=== PATIENT | female | born 1945 | race Caucasian/White ===

== ENCOUNTER 2019-08-08 17:04 | Emergency (ER) | payer OTHER, MEDICARE ==
[~2019-08-08] VITALS: Ht 154.9 cm; Wt 62.1 kg
[2019-08-08 18:25] VITALS: BP 110/77
== END 2019-08-08 18:40 | disposition home or self-care (01) ==
LOC: ER 17:04
DX: Z03.818 Encounter for observation for suspected exposure to other biological agents ruled out (principal); S01.111A Laceration without foreign body of right eyelid and periocular area, initial encounter; M79.641 Pain in right hand; M41.9 Scoliosis, unspecified; M19.90 Unspecified osteoarthritis, unspecified site; M79.7 Fibromyalgia; J44.9 Chronic obstructive pulmonary disease, unspecified; Z88.6 Allergy status to analgesic agent; Z88.5 Allergy status to narcotic agent; W01.198A Fall on same level from slipping, tripping and stumbling with subsequent striking against other object, initial encounter; Y93.01 Activity, walking, marching and hiking; Y92.89 Other specified places as the place of occurrence of the external cause; Y99.9 Unspecified external cause status